=== PATIENT | male | born 1965 | race Caucasian/White ===

== ENCOUNTER 2016-11-16 23:40 | Emergency (ER) | payer SELFPAY ==
--- NOTE | 2016-11-17 00:21 | ED Physician Chart ---
Chief Complaint/HPI - Patient Information Date Seen:: 11/17/16 Time Seen:: 00:16 Chief Complaint:: ALTERED LEVEL OF CONSCIOUSNESS History of Present Illness:: THIS IS A 50 YO MALE WHO FELL OUT AT HOME AND HIS FAMILY CALLED 911 SO THAT HE COULD GET CHECKED OUT. HE DRANK 30 CANS OF BEER DAILY SINCE HE RETIRED. HE STATES THAT HE HAD A CARDIAC ARREST TWICE AND A PULMONARY EMBOLIS IN THE PAST. Vitals:: Vital Signs - 8 hr 11/16/16 23:45 Temp 97.8 F HR 85 RR 20 BP 151/101 O2 Sat % 95 Historian:: Patient, EMS, Family Member Review:: Nurse's Note Reviewed Review of Systems - Review of Systems General/Constitutional: No fever, No chills, No weight loss, No weakness, No diaphoresis, No edema, No loss of appetite, Other (THE PATIENT IS TOO DRUNK TO GIVE A REVIEW OF SYSTEMS.) Skin: No skin lesions, No rash, No bruising Head: No headache, No light-headedness Eyes: No loss of vision, No pain, No diplopia ENT: No earache, No nasal drainage, No sore throat, No tinnitus Neck: No neck pain, No swelling, No thyromegaly, No stiffness, No mass noted Cardio Vascular: No chest pain, No palpitations, No PND, No orthopnea, No edema Pulmonary: No SOB, No cough, No sputum, No wheezing GI: No nausea, No vomiting, No diarrhea, No pain, No melena, No hematochezia, No constipation, No hematemesis G/U: No dysuria, No frequency, No hematuria Musculoskeletal: No bone or joint pain, No back pain, No muscle pain Endocrine: No polyuria, No polydipsia Psychiatric: No prior psych history, No depression, No anxiety, No suicidal ideation Hematopoietic: No bruising, No lymphadenopathy Allergic/Immuno: No urticaria, No angioedema Neurological: No syncope, No focal symptoms, No weakness, No paresthesia, No headache, No seizure, No dizziness, No confusion, No vertigo Past Medical History - Past Medical History Obtainable: Yes Past Medical History: HTN, DVT/PE, PUD/GERD Family History: None Social History: Non Smoker, No Alcohol, No Drug Use Surgical History: None Psychiatricy History: None Medication: Reviewed Physical Exam - Physical Examination General/Constitutional: Well-developed, well-nourished, Alert, No distress, GCS 15, Non-toxic appearing, Ambulatory Other Gen/Cons comments:: HE IS ALTERED AND UNABLE TO GIVE ANY CORRECT INFORMATION AND UNCOOPERATIVE. Head: Atraumatic Eyes: Lids, conjuctiva normal, PERRL, EOMI Skin: Nl inspection, No rash, No skin lesions, No ecchymosis, Well hydrated, No lymphadenopathy ENMT: External ears, nose nl, Nasal exam nl, Lips, teeth, gums nl Neck: Nontender, Full ROM w/o pain, No JVD, No nuchal rigidity, No bruit, No mass, No stridor Respiratory: Nl effort/Exclusion, Clear to Auscultation, No Wheeze/Rhonchi/Rales Cardio Vascular: RRR, No murmur, gallop, rubs, NL S1 S2 GI: No tenderness/rebounding/guarding, No organomegaly, No hernia, Normal BS's, Nondistended, No mass/bruits, No McBurney tenderness : No CVA tenderness Extremities: No tenderness or effusion, Full ROM, normal strength in all extremities, No edema, Normal digits & nails Neuro/Psych: Alert/oriented, DTR's symmetric, Normal sensory exam, Normal motor strength, Judgement/insight normal, Mood normal, Normal gait, No focal deficits Other Neuro/Psych comments:: DISORIENTED TO TIME AND PLACE. Misc: normal gait, Normal back, No paraspinal tenderness Labs/Radiology/EKG Results - Lab Results Results: Abnormal Lab Results 11/17/16 11/17/16 11/17/16 00:23 00:23 00:23 WBC RBC Hgb Hct MCV MCH MCHC Differential RDW Plt Count MPV Neutrophils % Lymphocytes % Monocytes % Eosinophils % Basophils % PT 12.5 H INR 1.19 Sodium Potassium Chloride Carbon Dioxide Anion Gap BUN Creatinine Est GFR ( Amer) Est GFR (Non-Af Amer) BUN/Creatinine Ratio Glucose Calcium Total Bilirubin AST ALT Alkaline Phosphatase Troponin I Total Protein Albumin Globulin Albumin/Globulin Ratio Triglycerides 200 H Cholesterol 171 LDL Cholesterol Direct 111 HDL Cholesterol 39 TSH Ethyl Alcohol 418 H 11/17/16 11/17/16 11/17/16 00:23 00:23 00:23 WBC 6.3 RBC 4.94 Hgb 16.4 Hct 46.8 MCV 94.7 MCH 33.3 H MCHC Differential 35.1 RDW 12.6 Plt Count 117 L MPV 7.0 Neutrophils % 51.7 Lymphocytes % 36.8 Monocytes % 8.9 Eosinophils % 1.5 Basophils % 1.1 PT INR Sodium 127 L Potassium 3.3 L Chloride 93 L Carbon Dioxide 25.2 Anion Gap 12.1 BUN 3 L Creatinine 0.7 Est GFR ( Amer) > 60.0 Est GFR (Non-Af Amer) > 60.0 BUN/Creatinine Ratio 4.3 Glucose 125 H Calcium 9.4 Total Bilirubin 3.3 H AST 59 H ALT 30 Alkaline Phosphatase 49 Troponin I 0.01 Total Protein 8.4 H Albumin 4.1 L Globulin 4.3 Albumin/Globulin Ratio 1.0 Triglycerides Cholesterol LDL Cholesterol Direct HDL Cholesterol TSH Ethyl Alcohol 11/17/16 00:23 WBC RBC Hgb Hct MCV MCH MCHC Differential RDW Plt Count MPV Neutrophils % Lymphocytes % Monocytes % Eosinophils % Basophils % PT INR Sodium Potassium Chloride Carbon Dioxide Anion Gap BUN Creatinine Est GFR ( Amer) Est GFR (Non-Af Amer) BUN/Creatinine Ratio Glucose Calcium Total Bilirubin AST ALT Alkaline Phosphatase Troponin I Total Protein Albumin Globulin Albumin/Globulin Ratio Triglycerides Cholesterol LDL Cholesterol Direct HDL Cholesterol TSH 3.73 Ethyl Alcohol Assessment - Assessment General Assessment: ALCOHOL INTOXICATION ED Septic Shock - . Is Septic Shock (SBP<90, OR Lactate>4 mmol\L) present?: No - <6hrs of presentation: Vital Signs: Vital Signs - 8 hr 11/16/16 23:45 Temp 97.8 F HR 85 RR 20 BP 151/101 O2 Sat % 95 Reassessment (Disposition) - Reassessment Reassessment Condition:: Improved - Diagnosis Diagnosis:: ALCOHOL INTOXICATION - Aftercare/Follow up Instructions Aftercare/Follow-Up Instructions:: Counseled pt regarding lab results/diagnosis & need follow up, Refer to Discharge Instructions, Counseled pt & family regarding lab results/diagnosis & need follow up Medication Prescribed:: THE PATIENT CALLED HIS FATHER AND WAS PICKED UP AFTER SIGNING AMA AT 0210. - Patient Disposition Discharge/Transfer:: Against Medical Advice Condition at Disposition:: Improved ED Discharge Plan - Patient Disposition Admit/Discharge/Transfer: AGAINST MEDICAL ADVICE Condition at Disposition: Improved
[2016-11-17 00:36] LABS: % BASOPHILS 1.1 % (0.0-2.0); % EOSINOPHILS 1.5 % (0.0-5.0); % LYMPHOCYTES 36.8 % (20.0-50.0); % MONOCYTES 8.9 % (2.0-10.0); % NEUTROPHILS 51.7 % (40.0-80.0); HEMATOCRIT 46.8 % (39.0-49.0); HEMOGLOBIN 16.4 gm/dL (13.2-17.3); MEAN CELL VOLUME 94.7 fl (80-99); MEAN CORPUSCULAR HEMOGLOBIN 33.3 pg (26.0-30.0); MEAN CORPUSCULAR HGB CONC 35.1 pg (28.0-36.0); NEUTROPHILE ABSOLUTE 3.2 Th/cmm (1.8-8.0); PLATELET COUNT 117 Th/cmm (150-400); RED BLOOD COUNT 4.94 Mil/cmm (4.30-5.70); RED CELL DISTRIBUTION WIDTH 12.6 % (11.5-20.0); WHITE BLOOD COUNT 6.3 Th/cmm (4.8-10.8)
[2016-11-17 00:45] LABS: INR 1.19 (0.5-1.4); PROTHROMBIN TIME (TEST) 12.5 SECONDS (9.5-11.5)
[2016-11-17 00:54] LABS: ALKALINE PHOSPHATASE 49 U/L (34-104); ANION GAP 12.1 (7.0-16.0); BILIRUBIN,TOTAL 3.3 mg/dL (0.3-1.0); BUN - UREA NITROGEN 3 mg/dL (7-25); BUN/CREATININE RATIO 4.3; CALCIUM SERUM 9.4 mg/dL (8.6-10.3); CARBON DIOXIDE 25.2 mEq/L (21.0-31.0); CHLORIDE 93 mEq/L (98-107); CHOLESTEROL 171 mg/dL (<200); CREATININE - SERUM 0.7 mg/dL (0.7-1.3); GLUCOSE 125 mg/dL (70-105); POTASSIUM SERUM 3.3 mEq/L (3.5-5.1); SGOT 59 U/L (13-39); SGPT/ALT 30 U/L (7-52); SODIUM SERUM 127 mEq/L (136-145); TRIGLYCERIDES 200 mg/dL (<150)
== END 2016-11-17 02:10 | disposition left against medical advice (07) ==
LOC: ER 23:40
DX: F10.129 Alcohol abuse with intoxication, unspecified (principal); I10 Essential (primary) hypertension; K21.9 Gastro-esophageal reflux disease without esophagitis; Z86.718 Personal history of other venous thrombosis and embolism
CPT/HCPCS: 36415-UA; 80053-TC; 80061-TC; 80320-TC; 84443-TC; 84484-TC; 85025-TC; 85610-TC; Z7502